=== PATIENT | male | born 1970 | race Caucasian/White ===

== ENCOUNTER 2019-03-10 19:44 | Emergency (ER) | payer MEDICAID ==
[~2019-03-10] VITALS: Ht 175.3 cm; Wt 111.1 kg
[2019-03-10 19:55] VITALS: BP 150/98
== END 2019-03-10 20:40 | disposition left against medical advice (07) ==
LOC: ER 19:44
DX: J02.9 Acute pharyngitis, unspecified (principal); Z53.21 Procedure and treatment not carried out due to patient leaving prior to being seen by health care provider